=== PATIENT | female | born 1940 | race Caucasian/White ===

== ENCOUNTER 2016-08-25 12:42 | Emergency (ER) | payer OTHER ==
[~2016-08-25 12:42] MED LIST: CALTRATE 600+D PO; CERTAGEN PO; FISH OIL 1,0001 CAP PO; HCTZ PO; NORVASC PO; PRAVACHOL PO; VITAMIN C PO
== END 2016-08-25 12:49 | disposition home or self-care (01) ==
LOC: CED 12:42
DX: S39.012A Strain of muscle, fascia and tendon of lower back, initial encounter (principal); I10 Essential (primary) hypertension; Z79.899 Other long term (current) drug therapy; X50.1XXA Overexertion from prolonged static or awkward postures, initial encounter
CPT/HCPCS: 99283; J2543